=== PATIENT | male | born 1970 | race Hispanic/Latino ===

== ENCOUNTER 2019-10-27 13:45 | Emergency (ER) | payer SELFPAY | END 2019-10-27 14:48 | disposition home or self-care (01) | LOC: EDH 13:45 | DX: Z48.02 Encounter for removal of sutures (principal); E78.00 Pure hypercholesterolemia, unspecified; E11.9 Type 2 diabetes mellitus without complications; I10 Essential (primary) hypertension; I25.10 Atherosclerotic heart disease of native coronary artery without angina pectoris; Z95.1 Presence of aortocoronary bypass graft; Z87.891 Personal history of nicotine dependence | CPT/HCPCS: 99281 ==